=== PATIENT | female | born 1965 | race Hispanic/Latino ===

== ENCOUNTER 2018-04-22 09:09 | Inpatient (IN) | payer BC ==
[~2018-04-22] VITALS: Ht 154.9 cm; Wt 66.8 kg
[~2018-04-22 09:09] MED LIST: LEVOTHYROXINE75 MCG PO; NORTRIPTYLINE H10 MG; PANTOPRAZOLE SO40 MG PO
--- OUTSIDE RECORDS SUMMARY | 2018-04-22 09:18 | XMS REPORT ---
Author Author [facility] Address Unknown Phone Unavailable Care Team Providers Care Blood And Plasma Laboratory Assistant Name Role Phone Unavailable Unavailable Payers Payer Name Policy Type Policy Number Effective Date Expiration Date Problems This patient has no known problems. Allergies, Adverse Reactions, Alerts Allergy Name Allergy Type Status Severity Reaction(s) Onset Date Inactive Date Treating Clinician Comments codeine DA Active U 2018-03-12 00:00:00 aspirin DA Active U 2018-03-12 00:00:00 erythromycin base DA Active U 2018-03-12 00:00:00 penicillin G DA Active U 2018-03-12 00:00:00 codeine DA Active U 2006-01-15 00:00:00 aspirin DA Active U 2006-01-15 00:00:00 erythromycin base DA Active U 2006-01-15 00:00:00 penicillin G DA Active U 2006-01-15 00:00:00 ASPIRIN DA Active U 2006-01-15 00:00:00 CODEINE DA Active U 2006-01-15 00:00:00 ERYTHROMYCIN DA Active U 2006-01-15 00:00:00 No Known Contrast Allergies DA Active U 2006-01-15 00:00:00 No Known Food Allergies DA Active U 2006-01-15 00:00:00 No Known Other Allergies DA Active U 2006-01-15 00:00:00 PENICILLIN DA Active U 2006-01-15 00:00:00 Medications This patient has no known medications. Results Test Description Test Time Test Comments Text Results Atomic Results Result Comments - XR CHEST 2 V 2018-03-12 15:10:00 FAX: Dana Cuellar [facility]- [phone] [place]: [address]: PRE FAX: Omid Caceres [phone] Name: TORY SILVA [facility] [place] : 1965 Age/S: 53/F [address] [place] [address] Unit #: [id number] Loc: [place] [address] Phys: Dana Henderson Acct: [id number] Dis Date: Status: PRE SDC PHONE #: [phone] Exam Date: 03/12/2018 1456 FAX #: [phone] Reason: HIATAL HERNIA EXAMS: CPT CODE: [id number] XR CHEST 2 V 75427 Clinical Indication: Diaphragmatic hernia; Comparison: None FINDINGS: The PA and lateral chest radiographs shows normal lung volumes without interstitial or airspace opacities, pleural effusions or pneumothorax. A small anterior right para midline diaphragmatic hernia is appreciated, consistent with a Morgagni hernia. The heart size and pulmonary vasculature are normal. The trachea is midline. There are no acute osseous abnormalities noted. IMPRESSION: 1. No chest radiographic evidence of acute cardiopulmonary disease. 2. Small anterior right para midline diaphragma tic hernia. SL: [id number] at 1510 Reported and signed by: Cristofer Barker D.O. CC: Dana Henderson; Omid Gleason MD Technologist: JOEL Rubin)(Ben) Trnscrd Date/Time/By: 03/12/2018 (9150) : By: [email or web address] Orig Print D/T: S: 03/12/2018 (2496) PAGE 1 Signed Report CBC W/AUTO DIFF 2018-03-12 14:54:00 WHITE BLOOD CELL (test code=WBC) 7.16 x10 3/uL 4.5-11.0 RED BLOOD CELL (test code=RBC) 4.49 x10 6/uL 3.54-5.02 HEMOGLOBIN (test code=HGB) 12.2 g/dL 11.0-15.0 HEMATOCRIT (test code=HCT) 40.2 % 33.0-45.0 MEAN CELL VOLUME (test code=MCV) 89.5 fL 81.0-99.0 MEAN CELL HGB (test code=MCH) 27.2 pg 27.0-33.0 MEAN CELL HGB CONCETRATION (test code=MCHC) 30.3 g/dL 33.0-37.0 RED CELL DISTRIBUTION WIDTH CV (test code=RDW) 16.2 % 11.5-14.5 RED CELL DISTRIBUTION WIDTH SD (test code=RDW-SD) 54.0 fL 37.0-54.0 PLATELET COUNT (test code=PLT) 292 x10 3/uL 150-400 MEAN PLATELET VOLUME (test code=MPV) 9.1 fL 7.0-9.0 NEUTROPHIL % (test code=NT%) 52.7 % 56.0-77.0 IMMATURE GRANULOCYTE % (test code=IG%) 0.3 % 0.0-2.0 LYMPHOCYTE % (test code=LY%) 38.8 % 14.0-32.0 MONOCYTE % (test code=MO%) 7.0 % 4.8-9.0 EOSINOPHIL % (test code=EO%) 0.8 % 0.3-3.7 BASOPHIL % (test code=BA%) 0.4 % 0.0-2.0 NUCLEATED RBC % (test code=NRBC%) 0.0 % 0-0 NEUTROPHIL # (test code=NT#) 3.77 x10 3/uL 2.0-7.6 IMMATURE GRANULOCYTE # (test code=IG#) 0.02 x10 3/uL 0.00-0.03 LYMPHOCYTE # (test code=LY#) 2.78 x10 3/uL 1.0-3.8 MONOCYTE # (test code=MO#) 0.50 x10 3/uL 0.1-0.8 EOSINOPHIL # (test code=EO#) 0.06 x10 3/uL 0.0-0.2 BASOPHIL # (test code=BA#) 0.03 x10 3/uL 0.0-0.2 NUCLEATED RBC # (test code=NRBC#) 0.00 x10 3/uL 0.0-0.1 MANUAL DIFF REQUIRED (test code=MDIFF) NO BASIC METABOLIC [id number] 14:44:00* Test Item Value Reference Range Comments SODIUM (test code=NA) 144 mEq/L 134-147 POTASSIUM (test code=K) 4.1 mEq/L 3.4-5.0 CHLORIDE (test code=CL) 108 mEq/L 100-108 CARBON DIOXIDE (test code=CO2) 31 mEq/L 21-33 ANION GAP (test code=GAP) 9 0-20 GLUCOSE (test code=GLU) 87 mg/dL 70-110 BLOOD UREA NITROGEN (test code=BUN) 9 mg/dL 7-18 GLOMERULAR FILTRATION RATE (test code=GFR) 87.2 90-95 Units of measure=ml/min/1.73 m2 CREATININE (test code=CREAT) 0.7 mg/dL 0.6-1.3 CALCIUM (test code=CA) 9.4 mg/dL 8.0-10.5
[2018-04-22] MEDS ORDERED: LEVOFLOXACIN 500MG/D5W 100ML 100 ML IV ONE (09:25)
[2018-04-22] MEDS ORDERED: BUPIVACAINE 0.25% 30ML SDV INJ ONE (11:10)
[2018-04-22] MEDS ORDERED: KETOROLAC TROMETHAMINE 30 MG/ML VIAL IV PRN (12:45)
[2018-04-22] MEDS ORDERED: DIPHENHYDRAMINE HCL INJ 50 MG/ML VIAL IM PRN (12:45)
[2018-04-22] MEDS ORDERED: MORPHINE SULFATE 2 MG/ML SYR 1ML IV PRN (12:45)
[2018-04-22] MEDS ORDERED: ONDANSETRON HCL INJ 2MG/ML 2ML 2 MG/ML VIAL IV PRN (12:45)
[2018-04-22] MEDS ORDERED: MORPHINE SULFATE INJ 4 MG/ML INJ 1ML IV PRN (13:30)
[2018-04-22] MEDS ORDERED: FENTANYL CITRATE/PF 100MCG/2 ML INJ ONE ×2 (13:35→14:52)
[2018-04-22] MEDS ORDERED: SCOPOLAMINE 1.5 MG PATCH TOP SCH (14:00)
[2018-04-22 14:29] VITALS: BP 136/57
--- NOTE | 2018-04-22 14:45 | NUR ---
Received patient from recovery. Patient A/O X3, even respirations on RA. Bowel sounds hypoactive, no edema. Five puncture sites on abdomen intact, no bleeding. SCD's in place bilaterally. Left hand 22 gauge IV with NS @ 125 cc/hr. Patient is ambulatory with assistance. Call light in reach, family at bedside, will continue to monitor.
[2018-04-22] MEDS ORDERED: MIDAZOLAM HCL 2 MG/2 ML VIAL ONE (14:52)
[2018-04-22 15:10] VITALS: BP 136/57
[2018-04-22 15:15] VITALS: BP 136/57
[2018-04-22] MEDS: SODIUM CHLORIDE 0.9% 1000ML 1,000 ML IV SCH ×2 (16:50→20:53)
--- NOTE | 2018-04-22 16:50 | NUR ---
Patient has voided since surgery.
[2018-04-22] MEDS ORDERED: GLYCOPYRROLATE INJ 1MG/ 5 ML SYR ONE (18:03)
[2018-04-22] MEDS ORDERED: LIDOCAINE HCL 2% LOCAL INJ 5 ML SDV VIAL INJ ONE (18:03)
[2018-04-22] MEDS ORDERED: ESMOLOL HCL 100MG/10ML 10 MG/ML VIAL ONE (18:03)
[2018-04-22] MEDS ORDERED: DEXAMETHASONE SOD PHOS INJ 4 MG/ML VIAL ONE (18:03)
[2018-04-22] MEDS ORDERED: ROCURONIUM BROMIDE 10 MG/ML 5ML VIAL ONE (18:03)
[2018-04-22] MEDS ORDERED: KETOROLAC TROMETHAMINE 30 MG/ML VIAL ONE (18:03)
[2018-04-22] MEDS ORDERED: ONDANSETRON HCL INJ 2MG/ML 2ML 2 MG/ML VIAL ONE (18:03)
[2018-04-22] MEDS ORDERED: PROPOFOL IV EMULSION 10 MG/ML 20 ML VIAL ONE (18:03)
[2018-04-22] MEDS ORDERED: NEOSTIGMINE 5 MG/5ML SYR ONE (18:03)
[2018-04-22] MEDS ORDERED: SEVOFLURANE INHAL SOLN 250 ML PEN BTL ONE (18:03)
--- NOTE | 2018-04-22 19:35 | NUR ---
RECEIVED PT IN BED AOX3 PT HAD LAP PARAESOPHAGEAL HERNIA REPAIR .PT HAD ABDOMINAL SURGICAL SITE DRY AND INTACT.FAMILY AT THE BEDSIDE .CALL LIGHT WITH IN REACH .CONTINUE TO MONITOR
--- NOTE | 2018-04-22 19:58 | Operative Report ---
DATE OF PROCEDURE: 04/22/2018 SURGEON: Omid Gleason MD PREOPERATIVE DIAGNOSES: 1. Paraesophageal hernia. 2. Chronic gastroesophageal reflux disease. POSTOPERATIVE DIAGNOSES: 1. Paraesophageal hernia. 2. Chronic gastroesophageal reflux disease. PREOPERATIVE INDICATION: Treat disease, prevent complications related to paraesophageal hernia. PROCEDURE: Laparoscopic paraesophageal hernia repair with Toupet fundoplication (CPT 45223) ANESTHESIA: General. DESIGNER ARCHITECT: kip Mejíasurgical supplies sterilizer (needed due to complexity of case). FLUIDS: As per Anesthesia. ESTIMATED BLOOD LOSS: 20 mL. DRAINS: None. COMPLICATIONS: None. SPECIMENS: None. GRAFTS: None. FINDINGS: Moderate-sized paraesophageal hernia with thickened hernia sac. PROCEDURE IN DETAIL: The patient was brought to the operating room and was intubated under general endotracheal anesthesia. She was positioned supine, both arms abducted, and all pressure were appropriately padded. She was sterilely prepped and draped in the usual fashion. A preprocedure pause was performed identifying the patient, use of perioperative antibiotics, intended procedure and staff surgeon. Access was gained through a left 5 mm subcostal incision via a Veress needle. Insufflation of the abdomen ensued and 4 additional trocars were placed in the standard position and the patient was then placed in steep reverse Trendelenburg position and a liver retractor was used to expose the hiatus. I began the dissection by incising the gastrohepatic ligament via the pars flaccida technique and exposed the right jason of the diaphragm. I then continued by exposing the arch of jason of the diaphragm as well as the left jason of the diaphragm by taking down adhesions as well as the hernia sac. I then circumferentially dissected the hernia through the thoracic cavity by taking down the adhesions in order to obtain about 3 cm of intra-abdominal esophagus. Once this was complete, I then repaired the paraesophageal hernia posteriorly with interrupted 2-0 Surgidac suture. The short gastric and posterior short gastric vessels were ligated in order to mobilize the fundus using [place] LigaSure device. I then completed a Toupet fundoplication by approximating the fundus to either side of the anterior esophagus with 2-0 Surgidac suture over a length of about 2-3 cm. Once that was complete, I then placed a posterior pexy suture between the fundus and the posterior jason of the diaphragm in order to prevent reherniation. There was a small serosal tear made in the posterior aspect of the stomach, which was repaired in an imbricating fashion with 2-0 Surgidac suture. Once this was complete, we then verified hemostasis, removed the liver retractor, desufflated the abdomen, and removed the trocars. Of note, the large port site was closed with 0 Vicryl suture using the Mendez-Deedee technique. We then closed the incision sites with 4-0 Monocryl suture in a subcuticular fashion and 0.25% bupivacaine was used both at the preperitoneal incision sites. Dermabond dressings were applied. All surgical sponges and instrument counts were correct. The patient tolerated the procedure well. Type of wound is type 1, clean. Omid Gleason MD Arely/MODL /[id number]
[2018-04-22 20:00] VITALS: BP 143/79
[2018-04-22] MEDS ORDERED: NORTRIPTYLINE HCL 10 MG CAP PO SCH (21:00)
--- NOTE | 2018-04-22 21:34 | History and Physical ---
CHIEF COMPLAINT: Reflux. HISTORY OF PRESENT ILLNESS: This is a 53-year-old woman, who was admitted to [facility] because of worsening GERD symptoms from her paraesophageal hernia. In March 2018, the patient underwent upper endoscopy that confirmed mild distal gastritis as well as 6 cm paraesophageal hernia. Today, the patient underwent successful surgical repair of the paraesophageal hernia as well as fundoplication. This surgery was performed by her general surgeon, namely Dr. Gleason. The patient currently voices no complaints. REVIEW OF SYSTEMS: GENERAL: Weight is stable. No fever or chills. HEENT: No headaches. No visual changes. CARDIOVASCULAR/RESPIRATORY: Slight tightness in her chest, but she states that she feels as though she has gas. No shortness of breath. No cough. GI: No nausea, vomiting, or diarrhea. She is tolerating a full liquid diet. : Abdi catheter is removed. Denies UTI symptoms. NEUROMUSCULAR: Denies any limb weakness or numbness. ALLERGIES: 1. PENICILLIN. 2. ASPIRIN. 3. CODEINE. MEDICATIONS: 1. Pantoprazole 40 mg daily. 2. Nortriptyline 10 mg q.h.s. 3. Levothyroxine 75 mcg daily. PAST MEDICAL HISTORY: 1. Hypothyroidism. 2. GERD. 3. Endoscopically proven gastritis. 4. Paraesophageal hernia. 5. Recurrent breast abscesses. FAMILY HISTORY: Female cousin and a sister both are breast cancer survivors. Maternal uncle of brain cancer. One of her sisters of lung cancer. PAST SURGICAL HISTORY: 1. Paraesophageal hernia repair and fundoplication today. 2. section x3. 3. Multiple ovarian cyst resection. 4. Multiple colposcopies. 5. Multiple LEEP procedures for her cervical dysplasia. SOCIAL HISTORY: This woman is single. 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 She lives in her house with her 18-year-old son. Does not smoke tobacco. Drinks alcohol rarely. PHYSICAL EXAMINATION: GENERAL: She is awake, alert, and oriented. Very pleasant and conversant. Looks much younger than her stated age. VITAL SIGNS: Blood pressure 142/78, pulse 86, respiratory rate 18, temperature 97.7, height 5 feet 1 inch, weight 147 pounds, BMI 27. Oxygen saturation 98% on room air. INTEGUMENT: Skin is warm and dry. No pallor, jaundice, diaphoresis. HEENT: Anterior sclerae. Moist mucous membranes. NECK: Supple. CARDIOVASCULAR: Regular rate and rhythm with S4 gallop. LUNGS: No rales, no rhonchi, no wheezes. ABDOMEN: Benign. The laparoscopic incisions are clean, dry, and intact. They are currently dressed. She has normal bowel sounds. EXTREMITIES: No edema or deformity. NEUROLOGIC: Intact. DIAGNOSES: 1. Status post laparoscopic paraesophageal hernia repair and fundoplication. 2. Gastroesophageal reflux disease. 3. Endoscopically proven gastritis. 4. Prehypertension. 5. Hypothyroidism. PLAN: 1. Advance diet to full liquid diet. 2. Gentle intravenous fluids. 3. Follow electrolytes and renal function as well as a hemoglobin and hematocrit. 4. Renewed home medications. 5. We will proceed with Enoxaparin for deep venous thrombosis prophylaxis. I spent 35 minutes in the care of this patient. MD SWATHI Ridley/INDRA /[id number] TOO
[2018-04-22] MEDS ORDERED: ENOXAPARIN SOD INJ 40 MG/0.4 ML SYR SC SCH (22:00)
--- NOTE | 2018-04-22 22:06 | NUR ---
PT C/O PAIN AND GIVEN MORPHINE AND ZOFRAN .PT REFUSED TO TAKE PAMELOR FROM THE HOSPITAL .PT TOOK HER OWN MEDIATION .CALL LIGHT WITH IN REACH CONTINUE TO MONITOR
[2018-04-22 23:18] VITALS: BP 143/79
[2018-04-23] VITALS: BP 149/93
[2018-04-23 04:00] VITALS: BP 111/59
--- NOTE | 2018-04-23 05:42 | NUR ---
PT RESTING AND DENIES PAIN .CALL LIGHT WITH IN REACH .CONTINUE TO MONITOR
[2018-04-23] MEDS ORDERED: LEVOTHYROXINE SODIUM 75 MCG TAB PO SCH (06:00)
[2018-04-23 06:03] LABS: BASOPHILS % 0.2 % (0.0-1.0); HEMATOCRIT 32.2 % (34.2-44.1); HEMOGLOBIN 10.3 g/dL (12.0-16.0); LYMPHOCYTES # (AUTO) 1.8 (1.0-3.2); LYMPHOCYTES % 27.8 % (18.0-39.1); MEAN CORPUSCULAR HEMOGLOBIN 27.5 pg (28-32); MEAN CORPUSCULAR VOLUME 86.1 fL (81-99); MONOCYTES # (AUTO) 0.6 (0.2-0.8); MONOCYTES % 8.4 % (4.4-11.3); NEUTROPHILS # (AUTO) 4.1 (2.1-6.9); NEUTROPHILS % 63.1 % (38.7-80.0); PLATELET COUNT 248 x10e3/uL (140-360); RED BLOOD COUNT 3.74 x10e6/uL (3.6-5.1); RED CELL DISTRIBUTION WIDTH 15.3 % (11.7-14.4)
[2018-04-23] MEDS: SODIUM CHLORIDE 0.9% 1000ML 1,000 ML IV SCH (06:10)
[2018-04-23 06:25] LABS: ALANINE AMINOTRANSFERASE 15 IU/L (0-55); ALKALINE PHOSPHATASE 53 IU/L (40-150); ANION GAP 8.8 mmol/L (8-16); BLOOD UREA NITROGEN 7 mg/dL (7-26); BUN/CREATININE RATIO 10 (6-25); CALCIUM 8.7 mg/dL (8.4-10.2); CARBON DIOXIDE 23 mmol/L (22-29); CHLORIDE 113 mmol/L (98-107); CREATININE, SERUM 0.69 mg/dL (0.57-1.11); EST GLOMERULAR FILTRATION RATE > 60 ML/MIN (60-); GLUCOSE 92 mg/dL (74-118); MAGNESIUM 1.9 MG/DL (1.3-2.1); PHOSPHORUS 3.6 MG/DL (2.3-4.7); POTASSIUM 3.8 mmol/L (3.5-5.1); SODIUM 141 mmol/L (136-145)
[2018-04-23] MEDS ORDERED: HYDROCODONE/APAP 7.5MG-325MG 1 EA TAB PO PRN (07:00)
--- NOTE | 2018-04-23 07:23 | NUR ---
Received patient and walking rounds complete. Patient resting at this time, no signs of distress. Call light in reach, will continue to monitor.
[2018-04-23] MEDS ORDERED: PANTOPRAZOLE SOD 40 MG TABEC PO SCH (07:30)
[2018-04-23 07:50] VITALS: BP 112/57
--- NOTE | 2018-04-23 08:22 | NUR ---
Progress Note S: No major complaints; tolerating full liquid/pureed diet O: AF, VSS; Gen- no acute distress; Abd- soft, incisions c/d/i, mild ecchymosis present A/P: POD 1, s/p Lap paraesophageal hernia repair with Toupet fundoplication -Liquid, pureed diet -Ambulate -DC Home -F/u instructions given (2 week f/u)
--- NOTE | 2018-04-23 10:00 | NUR ---
Patient watching tv at this time, no signs of distress. Left hand 22 gauge IV with NS @125mls/hr. Patient passing gas, bowel sounds active. SCD's bilaterally. No pain or discomfort at this time. Will continue to monitor.
[2018-04-23 10:09] VITALS: BP 112/57
[2018-04-23] MEDS ORDERED: PANTOPRAZOLE SO40 MG PO (10:30)
[2018-04-23] MEDS ORDERED: ULTRAM50 MG PO (10:32)
--- NOTE | 2018-04-23 10:40 | NUR ---
Removed patients IV. Catheter tip intact and pressure dressing applied.
--- NOTE | 2018-04-23 11:02 | NUR ---
Patient discharged from facility. Patient gathered all personal belongings including discharge instructions, prescriptions, and follow up information. Patient left unit in wheelchair and went home via private auto.
--- NOTE | 2018-04-24 05:01 | Discharge Summary ---
ADMIT DIAGNOSES: 1. Paraesophageal hernia. 2. Gastroesophageal reflux disease. 3. Endoscopically proven gastritis. 4. Prehypertension. 5. Hypothyroidism. DISCHARGE DIAGNOSES: 1. Status post laparoscopic paraesophageal hernia repair and fundoplication. 2. Gastroesophageal reflux disease. 3. Endoscopically proven gastritis. 4. Prehypertension. 5. Hypothyroidism. HOSPITAL COURSE: This is a 53-year-old woman, who was admitted to [facility], diagnosed with paraesophageal hernia. During this hospitalization, she underwent successful laparoscopic paraesophageal hernia repair and fundoplication. The surgery was performed by her general surgeon, namely Dr. Omid Gleason. The patient's brief hospitalization was unremarkable. On day of discharge, the patient was tolerating full liquid diet. DISCHARGE MEDICATIONS: 1. Pantoprazole 40 mg daily. 2. Nortriptyline 10 mg at bedtime. 3. Levothyroxine 75 mcg daily. 4. Tramadol 50 mg every 4 hours p.r.n. pain, #30 prescribed, no refills. FOLLOWUP INSTRUCTIONS: The patient is instructed to follow up with her primary care doctor within 2 weeks for blood pressure measurement. The patient is instructed to follow up with Dr. Gleason also within 2 weeks. MD SWATHI Ridley/INDRA /[id number]
== END 2018-04-23 11:00 | disposition home or self-care (01) | DRG 328 ==
LOC: OR 09:09 → PACU V 14:24 → MED/SURG 14:27
PROVIDERS: ADMIT Internal Medicine; ATTEND Internal Medicine
PROC: 0DV44ZZ Restriction of Esophagogastric Junction, Percutaneous Endoscopic Approach (ICD-10-PCS; 2018-04-22)
PROC: 0BQT4ZZ Repair Diaphragm, Percutaneous Endoscopic Approach (ICD-10-PCS; principal; 2018-04-22 11:16)
DX: K44.9 Diaphragmatic hernia without obstruction or gangrene (principal); K21.9 Gastro-esophageal reflux disease without esophagitis; K29.70 Gastritis, unspecified, without bleeding; E03.9 Hypothyroidism, unspecified; R03.0 Elevated blood-pressure reading, without diagnosis of hypertension; Z80.3 Family history of malignant neoplasm of breast; Z80.1 Family history of malignant neoplasm of trachea, bronchus and lung; Z80.8 Family history of malignant neoplasm of other organs or systems; Z88.6 Allergy status to analgesic agent; Z88.5 Allergy status to narcotic agent; Z88.0 Allergy status to penicillin
CPT/HCPCS: 36415; 80053; 83735; 84100; 85025; J1100; J1650; J1885; J1956; J2001; J2250; J2270; J2405; J7030